=== PATIENT | male | born 1950 | race Caucasian/White ===

== ENCOUNTER → 2016-07-20 | Outpatient (CLI) | payer BC ==
--- NOTE | 2016-07-20 14:38 | CR ---
EXAMINATION: Right shoulder HISTORY: Pain COMPARISON: None TECHNIQUE: 3 views FINDINGS/IMPRESSION: There is no acute osseous abnormality, dislocation, or fracture identified. Bon e mineralization appears normal. On the axillary view the acromioclavicular joint appears subluxed a nd overlapping, this could suggest a separation injury. There is also a tiny os acromiale.
== END ==
LOC: MW.CHORTHO 09:23
PROVIDERS: ATTEND Orthopaedic Surgery
DX: M25.511 Pain in right shoulder (principal)
CPT/HCPCS: 73030-26-RT; 73030-RT